=== PATIENT | female | born 1960 | race Caucasian/White ===

== ENCOUNTER 2018-07-15 17:01 | Emergency (ER) | payer OTHER ==
[~2018-07-15] VITALS: Ht 154.9 cm; Wt 69.1 kg
[2018-07-15] MEDS ORDERED: METO25 PO (17:18)
[2018-07-15] MEDS ORDERED: ASPI81 PO (17:18)
[2018-07-15] MEDS ORDERED: DILT60 PO (17:18)
[2018-07-15] MEDS ORDERED: PERTUSS(ACELL),DIPH,TET VAC/PF 0.5 ML VIAL IM ONE (18:30)
[2018-07-15 18:54] VITALS: BP 106/68
== END 2018-07-15 18:55 | disposition home or self-care (01) ==
LOC: EMS 17:02
DX: R60.0 Localized edema (principal); I10 Essential (primary) hypertension; Z79.82 Long term (current) use of aspirin; Z79.899 Other long term (current) drug therapy
CPT/HCPCS: 90471; 90715; 93971